=== PATIENT | female | born 1930 | race Caucasian/White ===

== ENCOUNTER 2017-02-15 22:04 | Emergency (ER) | payer OTHER, BC ==
[2017-02-15 22:20] VITALS: TEMP 97.3
--- NOTE | 2017-02-15 22:21 | CPEKG ---
Heart Rate: 63 RR Interval: 952 P-R Interval: 169 QRSD Interval: 146 QT Interval: 496 QTC Interval: 508 P [place]: 0 QRS [place]: -44 T Wave [place]: 122 EKG Severity - ABNORMAL ECG - EKG Impression: SINUS RHYTHM EKG Impression: LEFT BUNDLE BRANCH BLOCK Electronically Signed By: Nga Cody 16-Feb-2017 21:32:36
[2017-02-15 22:38] LABS: % IMMATURE GRANULYOCYTES 0.2 % (0.0-1.1); ABSOLUTE IMMATURE GRANULOCYTES 0.02 10^3/uL (0.00-0.10); ADD DIFF? NO; ADD MORPH? NO; ADD SCAN? NO; ATYPICAL LYMPHOCYTE FLAG 0 (0-99); FRAGMENT RBC FLAG 0 (0-99); HEMOGLOBIN 12.9 g/dL (12.6-16.3); LEFT SHIFT FLG 0 (0-99); LIPEMIA HEMOLYSIS FLAG 80 (0-99); MEAN CELL HEMOGLOBIN 29.9 pg (27.9-34.1); MEAN CELL HEMOGLOBIN CONCENTR. 33.1 g/dL (32.4-36.7); MEAN CELL VOLUME 90.3 fL (81.5-99.8); MEAN PLATELET VOLUME 11.2 fL (8.7-11.7); PLATELET CLUMPS FLAG 10 (0-99); PLATELET COUNT 252 10^3/uL (150-400); RED BLOOD CELL COUNT 4.32 10^6/uL (4.18-5.33); RED CELL DISTRIBUTION WIDTH 13.2 % (11.5-15.2)
[2017-02-15 22:46] LABS: ALANINE AMINOTRANSFERASE 33 IU/L (9-52); ALBUMIN 4.6 g/dL (3.5-5.0); ALKALINE PHOSPHATASE 64 IU/L (38-126); ANION GAP 16 mEq/L (8-16); ASPARTATE AMINOTRANSFERASE 28 IU/L (14-46); BILIRUBIN,TOTAL 0.7 mg/dL (0.1-1.4); CALCIUM 10.3 mg/dL (8.5-10.4); CARBON DIOXIDE 23 mEq/l (22-31); CHLORIDE 103 mEq/L (97-110); CREATININE 1.2 mg/dL (0.6-1.0); GLOMERULAR FILTRATION RATE 42; GLUCOSE 85 mg/dL (70-100); POTASSIUM 4.1 mEq/L (3.5-5.2); SODIUM 142 mEq/L (134-144)
[2017-02-15] MEDS ORDERED: NS 1,000 ML IV ONE (22:50)
[2017-02-15] MEDS ORDERED: ONDANSETRON 4 MG/2 ML VIAL IVP ONE (22:50)
[2017-02-15] MEDS ORDERED: MECLIZINE HCL 25 MG TAB PO ONE (22:51)
--- NOTE | 2017-02-15 22:55 | EDPHY ---
H & P Stated Complaint: dizzy tonight, vertigo s/s, worse with change pos, just moved [facility] Time Seen by Provider: 02/15/17 22:38 HPI/ROS: HPI The patient presents brought in by ambulance for dizziness which she initially noticed last night, then improved during the day today, then about 2 hours ago began gradually while she was seated watching television. She says it feels as if she is off balance. She had an episode of vomiting. The dizziness is worse with changes in position and improved if she lays still and does not move her head. She has a remote history of vertigo. 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 She denies any chest pain, shortness of breath. REVIEW OF SYSTEMS Constitutional: No fever, no chills. Eyes: No discharge. ENT: No sore throat. Cardiovascular: No chest pain, no palpitations. Respiratory: No cough, no shortness of breath. Gastrointestinal: No abdominal pain, no vomiting. Genitourinary: No hematuria. Musculoskeletal: No back pain. Skin: No rashes. Neurological: No headache. PMHx: Hypertension, hypothyroidism, history of CVA in 2013, prediabetic Soc Hx: Moved here to assisted living 3 weeks ago, daughter is physician and lives nearby PHYSICAL General Appearance: Alert, no distress Eyes: Pupils equal and round no pallor or injection ENT, Mouth: Mucous membranes moist Respiratory: There are no retractions, lungs are clear to auscultation Cardiovascular: Regular rate and rhythm Gastrointestinal: Abdomen is soft and non-tender, no masses, bowel sounds normal Neurological: A&O x3, cranial nerves 2-12 intact, 5/5 strength in upper and lower extremities which is symmetric, no nystagmus, normal finger to nose and heel to mckeon testing Skin: Warm and dry, no rashes Musculoskeletal: Neck is supple non tender Extremities: symmetrical, full range of motion Psychiatric: Patient is oriented X 3, there is no agitation Source: Patient Exam Limitations: No limitations - Personal History Current Tetanus/Diphtheria Vaccine: Yes - Medical/Surgical History Hx Asthma: No Hx Chronic Respiratory Disease: No Hx Diabetes: Yes Hx Cardiac Disease: No Hx Renal Disease: No Hx Cirrhosis: No Hx Alcoholism: No Hx HIV/AIDS: No Hx Splenectomy or Spleen Trauma: No Other PMH: pre-diab, stroke 03/24, htn, hypothyroid - Social History Smoking Status: Former smoker Constitutional: Initial Vital Signs Temperature (C) 36.3 C 02/15/17 22:05 Heart Rate 61 02/15/17 22:05 Respiratory Rate 18 02/15/17 22:05 Blood Pressure 164/72 H 02/15/17 22:05 O2 Sat (%) 97 02/15/17 22:05 O2 Delivery Mode Room Air Allergies/Adverse Reactions: Penicillins Allergy (Verified 02/15/17 22:19) Home Medications: Medication Instructions Recorded Amlodipine Besylate 02/15/17 Levothyroxine 02/15/17 Lisinopril 02/15/17 Lovastatin 02/15/17 Pantoprazole Sodium 02/15/17 Meclizine HCl [Meclizine HCl 25 mg 25 mg PO BID PRN #20 tab 02/16/17 (RX,OTC)] Medical Decision Making - Diagnostics EKG Interpretation: EKG: Complete interpretation has been separately recorded in the [facility] archive. Summary impression: Left bundle branch block Imaging Results: Imaging Impressions Head CT 02/15/17 22:51 Impression: 1. Mild to moderate age-related atrophy. 2. No hemorrhage, mass effect, or definite acute peripheral infarct. 3. Mild microvascular ischemic disease. 4. Encephalomalacia related to remote infarct left occipital lobe and small lacunar infarct posterior left basal ganglia. 5. Nonspecific left maxillary and sphenoid sinus disease. Findings discussed with Edwige Lees MD at 23:11 hour, 02/15/2017. If symptoms worsen, additional imaging may be necessary. Imaging: Discussed imaging studies w/ weight caller Radiologist, I viewed and interpreted images myself Differential Diagnosis: This is an 87-year-old female with hypertension, pre diabetes, hypothyroidism, history of CVA who presents with an episode of vertigo associated with vomiting which began about 2 hours ago. The vertigo is positional, and improved when she lays still. She does not have a headache, vision changes. Differential diagnosis includes CVA, cerebellar mass, BPPV, Meniere's disease or labyrinthitis. I suspect peripheral vertigo given no neurologic deficits. In the emergency department, patient was given 1 L of IV fluid perfusion volume depletion, Zofran IV, meclizine. On re-evaluation, her symptoms had improved dramatically. Labs did reveal signs of pre renal azotemia likely related to dehydration. I discussed the results of her tests with her and her family. She was able to walk with a steady gait. She would like to go home and I feel this is reasonable. My however she declines. She will be discharged to the emergency room with follow up by her PMD as needed. She did have finding of left bundle branch block on EKG and because of this her own and was added. This was negative. I will refer to Cardiology for outpatient testing as needed. - Data Points Laboratory Results: Laboratory Results 02/15/17 22:05 02/15/17 22:05 02/15/17 02/15/17 02/15/17 22:05 22:05 22:05 WBC 8.89 10^3/uL 10^3/uL (3.80-9.50) RBC 4.32 10^6/uL 10^6/uL (4.18-5.33) Hgb 12.9 g/dL g/dL (12.6-16.3) Hct 39.0 % % (38.0-47.0) MCV 90.3 fL fL (81.5-99.8) MCH 29.9 pg pg (27.9-34.1) MCHC 33.1 g/dL g/dL (32.4-36.7) RDW 13.2 % % (11.5-15.2) Plt Count 252 10^3/uL 10^3/uL (150-400) MPV 11.2 fL fL (8.7-11.7) Neut % (Auto) 57.1 % % (39.3-74.2) Lymph % (Auto) 30.9 % % (15.0-45.0) [place] % (Auto) 9.1 % % (4.5-13.0) Eos % (Auto) 1.9 % % (0.6-7.6) Baso % (Auto) 0.8 % % (0.3-1.7) Nucleat RBC Rel Count 0.0 % % (0.0-0.2) Absolute Neuts (auto) 5.07 10^3/uL 10^3/uL (1.70-6.50) Absolute Lymphs (auto) 2.75 10^3/uL 10^3/uL (1.00-3.00) Absolute Monos (auto) 0.81 10^3/uL H 10^3/uL (0.30-0.80) Absolute Eos (auto) 0.17 10^3/uL 10^3/uL (0.03-0.40) Absolute Basos (auto) 0.07 10^3/uL 10^3/uL (0.02-0.10) Absolute Nucleated RBC 0.00 10^3/uL 10^3/uL (0-0.01) Immature Gran % 0.2 % % (0.0-1.1) Immature Gran # 0.02 10^3/uL 10^3/uL (0.00-0.10) Sodium 142 mEq/L mEq/L (134-144) Potassium 4.1 mEq/L mEq/L (3.5-5.2) Chloride 103 mEq/L mEq/L (97-110) Carbon Dioxide 23 mEq/l mEq/l (22-31) Anion Gap 16 mEq/L mEq/L (8-16) BUN 24 mg/dL H mg/dL (7-23) Creatinine 1.2 mg/dL H mg/dL (0.6-1.0) Estimated GFR 42 Glucose 85 mg/dL mg/dL (70-100) Calcium 10.3 mg/dL mg/dL (8.5-10.4) Total Bilirubin 0.7 mg/dL mg/dL (0.1-1.4) AST 28 IU/L IU/L (14-46) ALT 33 IU/L IU/L (9-52) Alkaline Phosphatase 64 IU/L IU/L (38-126) Troponin I < 0.012 ng/mL ng/mL (0.000-0.034) Total Protein 8.0 g/dL g/dL (6.3-8.2) Albumin 4.6 g/dL g/dL (3.5-5.0) Medications Given: Discontinued Medications Sodium Chloride (Ns) 1,000 mls @ 500 mls/hr IV EDNOW ONE PRN Reason: Protocol Stop: 02/16/17 00:49 Last Admin: 02/15/17 23:26 Dose: 1,000 mls Meclizine HCl (Meclizine Hcl) 25 mg PO EDNOW ONE Stop: 02/15/17 22:52 Last Admin: 02/15/17 23:27 Dose: 25 mg Ondansetron HCl (Zofran) 4 mg IVP EDNOW ONE Stop: 02/15/17 22:51 Last Admin: 02/15/17 23:27 Dose: 4 mg Ondansetron HCl (Zofran Odt 4 Mg Prepack#2) 1 btl TAKEHOME EDNOW ONE Stop: 02/16/17 00:40 Last Admin: 02/16/17 00:53 Dose: 1 btl Departure - Departure Disposition: Home, Routine, Self-Care Clinical Impression: Vertigo Vomiting Qualifiers: Vomiting type: unspecified Vomiting Intractability: non-intractable Nausea presence: without nausea Qualified Code(s): R11.11 - Vomiting without nausea Condition: Good Instructions: Ondansetron (By mouth), Vertigo (ED) Additional Instructions: Please make sure to drink plenty of fluids. Your tests look like you are mildly dehydrated. I have prescribed a medicine called meclizine that you can take if the dizziness returns. I have put in a referral for Cardiology for the left bundle branch block that we saw today. Referrals: Adriana Kat MD [Medical Doctor] - As per Instructions Jerry Langley MD [Medical Doctor] - As per Instructions Prescriptions: Meclizine HCl [Meclizine HCl 25 mg (RX,OTC)] 25 mg PO BID PRN #20 tab PRN Reason: vertigo
[2017-02-16] MEDS ORDERED: ONDANSETRON 4MG PREPACK#2 BTL TAKEHOME ONE (00:39)
[2017-02-16 00:55] VITALS: BP 145/59; PULSE 69; RESP 16; O2SAT 96
== END 2017-02-16 00:53 | disposition home or self-care (01) ==
DX: R42 Dizziness and giddiness (principal); R11.11 Vomiting without nausea; E86.9 Volume depletion, unspecified; I10 Essential (primary) hypertension; Z86.73 Personal history of transient ischemic attack (TIA), and cerebral infarction without residual deficits; Z87.891 Personal history of nicotine dependence
CPT/HCPCS: 70450; 93005; 96361; 96374; 99285; J2405

== ENCOUNTER → 2018-09-17 | Outpatient (CLI) | payer OTHER | LOC: BMCIMAGING 10:23 | PROVIDERS: ATTEND Internal Medicine Endocrinology, Diabetes & Metabolism | DX: M85.88 Other specified disorders of bone density and structure, other site (principal); Z78.0 Asymptomatic menopausal state; E07.9 Disorder of thyroid, unspecified; Z79.899 Other long term (current) drug therapy ==

== ENCOUNTER → 2018-10-11 | Outpatient (CLI) | payer OTHER | LOC: BMCIMAGING 14:02 | PROVIDERS: ATTEND Orthopaedic Surgery Hand Surgery | DX: M19.012 Primary osteoarthritis, left shoulder (principal) ==